=== PATIENT | male | born 1935 | race Caucasian/White ===

== ENCOUNTER 2020-08-11 10:16 | Outpatient (CLI) | payer MEDICARE, MEDICAID | END 2020-08-11 10:17 | disposition home or self-care (01) | LOC: CSHWCC 10:16 | PROVIDERS: ATTEND Nurse Practitioner Family | DX: L97.311 Non-pressure chronic ulcer of right ankle limited to breakdown of skin (principal); R60.0 Localized edema; I10 Essential (primary) hypertension; I70.202 Unspecified atherosclerosis of native arteries of extremities, left leg; I87.2 Venous insufficiency (chronic) (peripheral); L03.116 Cellulitis of left lower limb | CPT/HCPCS: 99213; G0463 ==

== ENCOUNTER 2020-09-08 11:23 | Outpatient (CLI) | payer MEDICARE, MEDICAID | END 2020-09-08 11:24 | disposition home or self-care (01) | LOC: CSHWCC 11:23 | PROVIDERS: ATTEND Nurse Practitioner Family | DX: L97.311 Non-pressure chronic ulcer of right ankle limited to breakdown of skin (principal); I70.202 Unspecified atherosclerosis of native arteries of extremities, left leg; L03.116 Cellulitis of left lower limb; I87.2 Venous insufficiency (chronic) (peripheral); I10 Essential (primary) hypertension; R60.0 Localized edema | CPT/HCPCS: 97139; G0463; 99213 ==